=== PATIENT | male | born 1995 | race American Indian/Alaskan Native ===

== ENCOUNTER 2020-05-28 16:19 | Emergency (ER) | payer SELFPAY ==
[2020-05-28] MEDS ORDERED: HYDROcodone/ACETAMINOPHEN 5-325 MG TAB PO STA (17:13)
[2020-05-28 17:26] VITALS: BP 146/94
--- NOTE | 2020-05-28 17:30 | Emergency Department Report ---
ED ENT HPI - General Chief complaint: Dental/Oral Stated complaint: TOOTH PAIN Time Seen by Provider: 05/28/20 17:07 Source: patient Mode of arrival: Ambulatory Limitations: No Limitations - History of Present Illness Initial comments: 24-year-old -Citizen Of [place] male presents to the emergency department complaining of a week or more history of severe dental pain which is worse with chewing eating and palpation. Reports swelling to his his his gingival region region causing headaches need to follow-up with the dentist in 5 days but having a lot of issues managing the pain with [id number] medications who presents emerge department for further treatment options to hold him over. Reports no fever, chills, sweats MD complaint: tooth pain -: Gradual Severity: mild, moderate Quality: aching, dull Consistency: constant Improves with: none Worsens with: none Context- Dental: history of dental caries, poor dental care Associated Symptoms: gum swelling, toothache. denies: sore throat - Related Data Previous Rx's Medication Instructions Recorded Last Taken Type Acetaminophen/Codeine [Tylenol #3] 1 tab PO Q6H PRN #7 tab 05/28/20 Unknown Rx Amoxicillin [Amoxicillin TAB] 875 mg PO BID #20 tablet 05/28/20 Unknown Rx Chlorhexidine Mouthwash [Peridex] 10 ml MM BID #1 bottle 05/28/20 Unknown Rx Ketorolac [Toradol] 10 mg PO Q6H PRN #15 tablet 05/28/20 Unknown Rx Lidocaine Viscous 2% 5 ml MM Q3H PRN #120 udc 05/28/20 Unknown Rx Allergies Allergy/AdvReac Type Severity Reaction Status Date / Time No Known Allergies Allergy Unverified 05/28/20 17:24 ED Dental HPI - General Chief complaint: Dental/Oral Stated complaint: TOOTH PAIN Time Seen by Provider: 05/28/20 17:07 Source: patient Mode of arrival: Ambulatory Limitations: No Limitations - Related Data Previous Rx's Medication Instructions Recorded Last Taken Type Acetaminophen/Codeine [Tylenol #3] 1 tab PO Q6H PRN #7 tab 05/28/20 Unknown Rx Amoxicillin [Amoxicillin TAB] 875 mg PO BID #20 tablet 05/28/20 Unknown Rx Chlorhexidine Mouthwash [Peridex] 10 ml MM BID #1 bottle 05/28/20 Unknown Rx Ketorolac [Toradol] 10 mg PO Q6H PRN #15 tablet 05/28/20 Unknown Rx Lidocaine Viscous 2% 5 ml MM Q3H PRN #120 udc 05/28/20 Unknown Rx Allergies Allergy/AdvReac Type Severity Reaction Status Date / Time No Known Allergies Allergy Unverified 05/28/20 17:24 ED Review of Systems ROS: Stated complaint: TOOTH PAIN Other details as noted in HPI Comment: All other systems reviewed and negative ED Past Medical Hx - Past Medical History Previous Medical History?: No - Surgical History Past Surgical History?: No - Social History Smoking Status: Current Every Day Smoker Substance Use Type: None - Medications Home Medications: Home Medications Medication Instructions Recorded Confirmed Last Taken Type Acetaminophen/Codeine [Tylenol #3] 1 tab PO Q6H PRN #7 tab 05/28/20 Unknown Rx Amoxicillin [Amoxicillin TAB] 875 mg PO BID #20 tablet 05/28/20 Unknown Rx Chlorhexidine Mouthwash [Peridex] 10 ml MM BID #1 bottle 05/28/20 Unknown Rx Ketorolac [Toradol] 10 mg PO Q6H PRN #15 tablet 05/28/20 Unknown Rx Lidocaine Viscous 2% 5 ml MM Q3H PRN #120 udc 05/28/20 Unknown Rx ED Physical Exam - General Limitations: No Limitations General appearance: alert, in no apparent distress - Head Head exam: Present: atraumatic, normocephalic - Eye Eye exam: Present: normal appearance - ENT ENT exam: Present: mucous membranes moist - Expanded ENT Exam Expanded Teeth exam: Present: dental caries, fractured tooth #, dental tenderness # 1 - Dental Tenderness (Severe dental erosion to the entire crown with adjacent gingival erythema and brownish discoloration centrally located. No active drainage) 2 - Fractured (Adjacent gingival erythema mild edema), Dental Tenderness 3 - Other (Airway patent tongue and uvula midline normal voice no drooling) - Neck Neck exam: Present: normal inspection - Respiratory Respiratory exam: Present: normal lung sounds bilaterally. Absent: respiratory distress - Cardiovascular Cardiovascular Exam: Present: regular rate, normal rhythm. Absent: systolic murmur, diastolic murmur, rubs, gallop - GI/Abdominal GI/Abdominal exam: Present: soft, normal bowel sounds - Rectal Rectal exam: Present: deferred - Extremities Exam Extremities exam: Present: normal inspection - Back Exam Back exam: Present: normal inspection - Neurological Exam Neurological exam: Present: alert, oriented X3 - Psychiatric Psychiatric exam: Present: normal affect, normal mood - Skin Skin exam: Present: warm, dry, intact, normal color. Absent: rash ED Course Vital Signs 05/28/20 17:23 Temperature 98.1 F Pulse Rate 69 Respiratory 18 Rate Blood Pressure 146/94 O2 Sat by Pulse 99 Oximetry Critical care attestation.: If time is entered above; I have spent that time in minutes in the direct care of this critically ill patient, excluding procedure time. ED Disposition Clinical Impression: Infected dental caries, Dentalgia Disposition: TO HOME OR SELFCARE Is pt being admited?: No Does the pt Need Aspirin: No Condition: Stable Instructions: Acute Pain, Adult, Trench Mouth, Diet and Dental Disease, Dental Abscess, Preventive Dental Care, 13-17 Years Old, Tooth Injuries Prescriptions: Amoxicillin [Amoxicillin TAB] 875 mg PO BID #20 tablet Referrals: [facility] [Outside] - 3-5 Days
== END 2020-05-28 19:01 | disposition home or self-care (01) ==
LOC: ED 16:19
DX: K02.9 Dental caries, unspecified (principal); K08.89 Other specified disorders of teeth and supporting structures; F17.200 Nicotine dependence, unspecified, uncomplicated; Z79.899 Other long term (current) drug therapy
CPT/HCPCS: 99282

== ENCOUNTER 2020-05-30 01:45 | Emergency (ER) | payer SELFPAY ==
[2020-05-30 01:56] VITALS: BP 142/91
--- NOTE | 2020-05-30 02:04 | Emergency Department Report ---
Chief Complaint: Dental/Oral Stated Complaint: TOOTHACHE Time Seen by Provider: 05/30/20 01:58 - HPI History of Present Illness: Patient is a 25-year-old -I[place] male with history of infected dental caries. Patient seen and treated on yesterday with prescriptions for same. Patient states he has been unable to see dentist. Requesting more pain medicine. Patient is currently prescribed Toradol, Tylenol 3, amoxicillin, Peridex mouth rinse. Patient has been advised that he must follow-up with dentist as he has no new complaint, there is no facial swelling, no gum swelling, no fever or chills. Patient is tolerating p.o. intake at this time without problems. - ROS Review of Systems: There is no fevers no chills no nausea no vomiting no abdominal pain no back pain no throat pain no ear pain. There is been no change in bowel or bladder patient is tolerating p.o. intake. Function. - Exam Vital Signs: Vital Signs 05/30/20 01:53 Temperature 97.8 F Pulse Rate 59 L Blood Pressure 142/91 O2 Sat by Pulse 100 Oximetry Physical Exam: Patient appears well-nourished well-hydrated patient is alert oriented x3 airway is patent no swelling no stridor no wheezing no exudate lungs are clear bilateral throughout. Heart sounds normal S1-S2 no rub gallop or murmur. Abdomen is soft nontender. There is no focal dental abscess. There is mild gum erythema at #17. There is no facial swelling. MSE screening note: Focused history and physical exam performed. Due to findings the following was ordered: ED Medical Decision Making - Medical Decision Making This is infected dental caries, patient instructed to take medications as prescribed. Follow-up with dentist tomorrow. Patient given referral to [facility] dental. Patient does not have an emergency medical condition at this time. Patient elects to follow-up with dentist as previously directed. ED Disposition for MSE Clinical Impression: Dental caries Disposition: MED SCREENING EXAM-LEFT Is pt being admited?: No Does the pt Need Aspirin: No Condition: Stable Referrals: [facility] [Provider Group] - 3-5 Days Forms: Work/School Release Form(ED) Time of Disposition: 02:04
== END 2020-05-30 02:25 | disposition left against medical advice (07) ==
LOC: ED 01:45
DX: K02.9 Dental caries, unspecified (principal); Z53.21 Procedure and treatment not carried out due to patient leaving prior to being seen by health care provider

== ENCOUNTER 2020-10-04 22:55 | Emergency (ER) | payer SELFPAY ==
[2020-10-05 00:32] VITALS: BP 128/73
--- NOTE | 2020-10-05 00:34 | Emergency Department Report ---
ED General Adult HPI - General Stated complaint: POSSIBLE SPIDER BITE - History of Present Illness Initial comments: Patient is a 24-year-old -[place] male with no past medical history presents to the ED with complaint of acute onset persistent painful itchy erythematous maculopapular rash on anterior left lower leg for the last 2 days suspecting that he may been bitten by unknown insect or spider. Patient states that the pain has worsened especially in the last 12 hours. Patient denies fever, chills, nausea, vomiting, dizziness, syncope, traumatic injury, numbness and tingling or weakness of left leg, change in vision, chest pain or shortness of breath. MD Complaint: Left lower leg painful erythematous rash -: Sudden, days(s) (2) Location: lower extremity (Anterior left lower leg painful erythematous rash) Radiation: extremity (Left lower leg) Severity scale (0 -10): 4 Quality: aching, sharp Consistency: constant Improves with: none Worsens with: none Associated Symptoms: denies other symptoms, rash (Anterior left lower leg pain due to erythematous maculopapular rash). denies: confusion, chest pain, cough, diaphoresis, fever/chills, headaches, loss of appetite, malaise, nausea/vomiting, seizure, shortness of breath, syncope, weakness Treatments Prior to Arrival: none - Related Data Previous Rx's Medication Instructions Recorded Last Taken Type Acetaminophen/Codeine [Tylenol #3] 1 tab PO Q6H PRN #7 tab 05/28/20 Unknown Rx Amoxicillin [Amoxicillin TAB] 875 mg PO BID #20 tablet 05/28/20 Unknown Rx Chlorhexidine Mouthwash [Peridex] 10 ml MM BID #1 bottle 05/28/20 Unknown Rx Ketorolac [Toradol] 10 mg PO Q6H PRN #15 tablet 05/28/20 Unknown Rx Lidocaine Viscous 2% 5 ml MM Q3H PRN #120 udc 05/28/20 Unknown Rx Ibuprofen [Motrin] 600 mg PO Q8H PRN #24 tablet 10/05/20 Unknown Rx Sulfamethoxazole/Trimethoprim 1 each PO Q12H #20 tablet 10/05/20 Unknown Rx [Bactrim DS TAB] Allergies Allergy/AdvReac Type Severity Reaction Status Date / Time No Known Allergies Allergy Unverified 05/28/20 17:24 ED Review of Systems ROS: Stated complaint: POSSIBLE SPIDER BITE Other details as noted in HPI Constitutional: denies: chills, fever Eyes: denies: eye pain, eye discharge, vision change ENT: denies: ear pain, throat pain, dental pain, hearing loss, congestion Respiratory: denies: cough, shortness of breath, wheezing Cardiovascular: denies: chest pain, palpitations Endocrine: no symptoms reported Gastrointestinal: denies: abdominal pain, nausea, vomiting, diarrhea Genitourinary: denies: urgency, dysuria Musculoskeletal: arthralgia (Anterior left lower leg pain due to erythematous maculopapular rash). denies: back pain, joint swelling, myalgia Skin: rash (Erythematous maculopapular painful rash on anterior left lower leg), change in color, pruritus. denies: lesions Neurological: denies: headache, weakness, paresthesias Psychiatric: denies: anxiety, depression Hematological/Lymphatic: denies: easy bleeding, easy bruising ED Past Medical Hx - Social History Smoking Status: Current Every Day Smoker Substance Use Type: Alcohol - Medications Home Medications: Home Medications Medication Instructions Recorded Confirmed Last Taken Type Acetaminophen/Codeine [Tylenol #3] 1 tab PO Q6H PRN #7 tab 05/28/20 Unknown Rx Amoxicillin [Amoxicillin TAB] 875 mg PO BID #20 tablet 05/28/20 Unknown Rx Chlorhexidine Mouthwash [Peridex] 10 ml MM BID #1 bottle 05/28/20 Unknown Rx Ketorolac [Toradol] 10 mg PO Q6H PRN #15 tablet 05/28/20 Unknown Rx Lidocaine Viscous 2% 5 ml MM Q3H PRN #120 udc 05/28/20 Unknown Rx Ibuprofen [Motrin] 600 mg PO Q8H PRN #24 tablet 10/05/20 Unknown Rx Sulfamethoxazole/Trimethoprim 1 each PO Q12H #20 tablet 10/05/20 Unknown Rx [Bactrim DS TAB] ED Physical Exam - General General appearance: alert, in no apparent distress - Head Head exam: Present: atraumatic, normocephalic, normal inspection - Eye Eye exam: Present: normal appearance, PERRL, EOMI Pupils: Present: normal accommodation - ENT ENT exam: Present: normal exam, normal orophraynx, mucous membranes moist, TM's normal bilaterally, normal external ear exam - Neck Neck exam: Present: normal inspection, full ROM - Respiratory Respiratory exam: Present: normal lung sounds bilaterally. Absent: respiratory distress, wheezes, rales, stridor, chest wall tenderness, accessory muscle use, decreased breath sounds - Cardiovascular Cardiovascular Exam: Present: regular rate, normal rhythm, normal heart sounds. Absent: systolic murmur, diastolic murmur, rubs, gallop - GI/Abdominal GI/Abdominal exam: Present: soft, normal bowel sounds. Absent: tenderness, guarding, rebound, hyperactive bowel sounds, hypoactive bowel sounds, organomegaly - Extremities Exam Extremities exam: Present: normal inspection, full ROM, tenderness (Palpable moderately tender anterior left lower leg due to erythematous maculopapular nonfluctuant rash), normal capillary refill. Absent: pedal edema, joint swelling, calf tenderness - Back Exam Back exam: Present: normal inspection, full ROM. Absent: tenderness, CVA tenderness (R), CVA tenderness (L), muscle spasm - Neurological Exam Neurological exam: Present: alert, oriented X3, CN II-XII intact, normal gait, reflexes normal - Psychiatric Psychiatric exam: Present: normal affect, normal mood - Skin Skin exam: Present: warm, dry, intact, rash (Erythematous maculopapular nonfluctuant rash on anterior left lower leg with localized tenderness) ED Medical Decision Making - Medical Decision Making This is a 24-year-old -[place] male with no past medical history presents to the ED with complaint of acute onset persistent painful itchy erythematous maculopapular rash on anterior left lower leg for the last 2 days suspecting that he may been bitten by unknown insect or spider. Patient states that the pain has worsened especially in the last 12 hours. In the ED, patient is alert and oriented x3 and is not in distress. Patient is hemodynamically stable. Based on the history and physical exam findings, the patient was discharged home on pain medication and antibiotics and advised to follow-up with his primary care physician in 5 to 7 days for reevaluation. Patient was advised return to the ED immediately if symptoms get worse. - Differential Diagnosis cellulitis; insect bite; folliculitis; abscess Critical care attestation.: If time is entered above; I have spent that time in minutes in the direct care of this critically ill patient, excluding procedure time. ED Disposition Clinical Impression: Cellulitis of left lower extremity, Acute folliculitis Insect bite of left lower leg with infection Qualifiers: Encounter type: initial encounter Qualified Code(s): S80.862A - Insect bite (nonvenomous), left lower leg, initial encounter; L08.9 - Local infection of the skin and subcutaneous tissue, unspecified; W57.XXXA - Bitten or stung by nonvenomous insect and other nonvenomous arthropods, initial encounter Disposition: TO HOME OR SELFCARE Is pt being admited?: No Does the pt Need Aspirin: No Condition: Stable Instructions: Cellulitis, Adult, [id number], Insect Bite, Adult, [id number] Additional Instructions: Take medication with food, drink plenty of fluids and follow-up with your primary care physician in 7 to 10 days for reevaluation. Return to the ED immediately if symptoms get worse. Prescriptions: Sulfamethoxazole/Trimethoprim [Bactrim DS TAB] 1 each PO Q12H #20 tablet Ibuprofen [Motrin] 600 mg PO Q8H PRN #24 tablet PRN Reason: Pain Referrals: [facility] [Provider Group] - 7-10 days Time of Disposition: 00:38 Print Language: MACEDONIAN
== END 2020-10-05 01:15 | disposition home or self-care (01) ==
LOC: ED 22:55
DX: S80.862A Insect bite (nonvenomous), left lower leg, initial encounter (principal); L03.116 Cellulitis of left lower limb; L08.9 Local infection of the skin and subcutaneous tissue, unspecified; F17.200 Nicotine dependence, unspecified, uncomplicated; Z72.89 Other problems related to lifestyle; W57.XXXA Bitten or stung by nonvenomous insect and other nonvenomous arthropods, initial encounter; Y93.89 Activity, other specified; Y92.488 Other paved roadways as the place of occurrence of the external cause; Y99.8 Other external cause status
CPT/HCPCS: 99282

== ENCOUNTER 2020-10-05 19:01 | Emergency (ER) | payer SELFPAY ==
[2020-10-05] MEDS ORDERED: diphenhydrAMINE 25 MG CAP PO ONE (19:28)
[2020-10-05] MEDS ORDERED: FAMOTIDINE 20 MG TAB PO ONE (19:28)
[2020-10-05] MEDS ORDERED: methylPREDNISolone Sod Succinate 125 MG/2 ML INJ IM ONE (19:28)
--- NOTE | 2020-10-05 19:28 | Emergency Department Report ---
ED Allergic Reaction HPI - General Chief complaint: Allergic Reaction Stated complaint: STUNG BY BEE @ 1600 TODAY Source: patient Mode of arrival: Ambulatory Limitations: No Limitations - History of Present Illness Initial Comments: Patient is a 24-year-old -[place]ish male with no past medical history presents to the ED with complaint of acute onset persistent right cheek and upper lip swelling after being bitten by a yellowjacket wasp about 8 hours ago. Patient states that the swelling has gotten worse in the last 4 hours. Patient denies dizziness, syncope, fever, chills, nausea, vomiting, diarrhea, chest pain, shortness of breath, wheezing, cough, swollen throat, swollen tongue, dysphagia or dysphonia, or itching and urticaria rashes. MD Complaint: allergic reaction, facial swelling (right facial swelling, s/p insect bite) -: Sudden, hour(s) (8) Exposure: insect bite Symptoms: rash, itching, facial swelling, lip swelling. denies: difficulty swallowing, difficulty breathing, orolingual swelling, hoarseness, syncopy, other, abdominal pain Severity: moderate Treatment Prior to Arrival: none Previous Allergy History: none - Related Data Previous Rx's Medication Instructions Recorded Last Taken Type Acetaminophen/Codeine [Tylenol #3] 1 tab PO Q6H PRN #7 tab 05/28/20 Unknown Rx Amoxicillin [Amoxicillin TAB] 875 mg PO BID #20 tablet 05/28/20 Unknown Rx Chlorhexidine Mouthwash [Peridex] 10 ml MM BID #1 bottle 05/28/20 Unknown Rx Ketorolac [Toradol] 10 mg PO Q6H PRN #15 tablet 05/28/20 Unknown Rx Lidocaine Viscous 2% 5 ml MM Q3H PRN #120 udc 05/28/20 Unknown Rx Famotidine [Pepcid] 20 mg PO BID #30 tablet 10/05/20 Unknown Rx Ibuprofen [Motrin] 600 mg PO Q8H PRN #24 tablet 10/05/20 Unknown Rx Sulfamethoxazole/Trimethoprim 1 each PO Q12H #20 tablet 10/05/20 Unknown Rx [Bactrim DS TAB] diphenhydrAMINE [Benadryl CAP] 25 mg PO Q6HR PRN #30 capsule 10/05/20 Unknown Rx predniSONE [Deltasone] 60 mg PO QDAY #15 tab 10/05/20 Unknown Rx Allergies Allergy/AdvReac Type Severity Reaction Status Date / Time No Known Allergies Allergy Unverified 05/28/20 17:24 ED Review of Systems ROS: Stated complaint: STUNG BY BEE @ 1600 TODAY Other details as noted in HPI Constitutional: denies: chills, fever Eyes: denies: eye pain, eye discharge, vision change ENT: other (right facial and upper lip swelling). denies: ear pain, throat pain Respiratory: denies: cough, shortness of breath, SOB with exertion, SOB at rest, wheezing Cardiovascular: denies: chest pain, palpitations Endocrine: no symptoms reported Gastrointestinal: denies: abdominal pain, nausea, vomiting, diarrhea, constipation, hematemesis, hematochezia Genitourinary: denies: urgency, dysuria Musculoskeletal: denies: back pain, joint swelling, arthralgia Skin: other (right facial and upper lip swelling). denies: rash, lesions Neurological: denies: headache, weakness, paresthesias Psychiatric: denies: anxiety, depression Hematological/Lymphatic: denies: easy bleeding, easy bruising ED Past Medical Hx - Past Medical History Previous Medical History?: No - Surgical History Past Surgical History?: No - Social History Smoking Status: Never Smoker Substance Use Type: None - Medications Home Medications: Home Medications Medication Instructions Recorded Confirmed Last Taken Type Acetaminophen/Codeine [Tylenol #3] 1 tab PO Q6H PRN #7 tab 05/28/20 Unknown Rx Amoxicillin [Amoxicillin TAB] 875 mg PO BID #20 tablet 05/28/20 Unknown Rx Chlorhexidine Mouthwash [Peridex] 10 ml MM BID #1 bottle 05/28/20 Unknown Rx Ketorolac [Toradol] 10 mg PO Q6H PRN #15 tablet 05/28/20 Unknown Rx Lidocaine Viscous 2% 5 ml MM Q3H PRN #120 udc 05/28/20 Unknown Rx Famotidine [Pepcid] 20 mg PO BID #30 tablet 10/05/20 Unknown Rx Ibuprofen [Motrin] 600 mg PO Q8H PRN #24 tablet 10/05/20 Unknown Rx Sulfamethoxazole/Trimethoprim 1 each PO Q12H #20 tablet 10/05/20 Unknown Rx [Bactrim DS TAB] diphenhydrAMINE [Benadryl CAP] 25 mg PO Q6HR PRN #30 capsule 06/27/21 Unknown Rx predniSONE [Deltasone] 60 mg PO QDAY #15 tab 10/05/20 Unknown Rx ED Physical Exam - General Limitations: No Limitations General appearance: alert, in no apparent distress - Head Head exam: Present: atraumatic, normocephalic, normal inspection - Eye Eye exam: Present: normal appearance, PERRL, EOMI Pupils: Present: normal accommodation - ENT ENT exam: Present: normal orophraynx, mucous membranes moist, TM's normal bilaterally, normal external ear exam, other (Swollen mildly tender upper lip and right cheek) - Neck Neck exam: Present: normal inspection, full ROM - Respiratory Respiratory exam: Present: normal lung sounds bilaterally. Absent: respiratory distress, wheezes, rales, chest wall tenderness, accessory muscle use, decreased breath sounds, prolonged expiratory - Cardiovascular Cardiovascular Exam: Present: regular rate, normal rhythm, normal heart sounds. Absent: systolic murmur, diastolic murmur, rubs, gallop - GI/Abdominal GI/Abdominal exam: Present: soft, normal bowel sounds. Absent: tenderness, guarding, rebound, hyperactive bowel sounds, hypoactive bowel sounds, organomegaly - Extremities Exam Extremities exam: Present: normal inspection, full ROM, normal capillary refill - Back Exam Back exam: Present: normal inspection, full ROM. Absent: tenderness, CVA tenderness (R), CVA tenderness (L), muscle spasm, paraspinal tenderness, vertebral tenderness - Neurological Exam Neurological exam: Present: alert, oriented X3, CN II-XII intact, normal gait, reflexes normal - Psychiatric Psychiatric exam: Present: normal affect, normal mood - Skin Skin exam: Present: warm, dry, intact, normal color, rash (Swollen mildly tender right cheek and upper lip), urticaria. Absent: cyanosis, diaphoretic, erythema, petechiae, pallor, abrasion, ecchymosis ED Course Vital Signs 10/05/20 19:27 Temperature 98.8 F Pulse Rate 83 Respiratory 18 Rate Blood Pressure 136/74 O2 Sat by Pulse 99 Oximetry ED Medical Decision Making - Medical Decision Making This is a 24-year-old -Swedish male with no past medical history presents to the ED with complaint of acute onset persistent right cheek and upper lip swelling after being bitten by a yellowjacket wasp about 8 hours ago. Patient states that the swelling has gotten worse in the last 4 hours. In the ED, patient is alert and oriented x3 and is not in any distress. Patient was treated in the ED for acute allergic reaction with steroid injection, Benadryl and Pepcid. Patient was observed in the ED momentarily for any improvement in the swelling of his upper lip. On reevaluation, patient is hemodynamically stable, patient's airways patent and patient is in no acute distress. Swelling on his right cheek and upper lip improved significantly. Patient was therefore discharged home on medications including steroids, Benadryl and Pepcid. Patient was advised to follow-up with his primary care physician in 3 to 5 days for reevaluation. Patient was advised return to the ED immediately if symptoms get worse. - Differential Diagnosis allergic reaction; anaphylaxis; urticaria; cellulitis Critical care attestation.: If time is entered above; I have spent that time in minutes in the direct care of this critically ill patient, excluding procedure time. ED Disposition Clinical Impression: Allergic reaction to insect bite, Acute urticaria, Swelling of right side of face Acute allergic reaction Qualifiers: Encounter type: initial encounter Qualified Code(s): T78.40XA - Allergy, unspecified, initial encounter Disposition: DC-01 TO HOME OR SELFCARE Is pt being admited?: No Does the pt Need Aspirin: No Condition: Stable Instructions: Allergies, Adult, [id number], Hives, [id number], Rash, Adult, [id number] Additional Instructions: Take medication with food, drink plenty of fluids and follow-up with your primary care physician in 5 to 7 days for reevaluation. Return to the ED immediately if symptoms get worse. Prescriptions: diphenhydrAMINE [Benadryl CAP] 25 mg PO Q6HR PRN #30 capsule PRN Reason: Itching and swelling predniSONE [Deltasone] 60 mg PO QDAY #15 tab Famotidine [Pepcid] 20 mg PO BID #30 tablet Referrals: [facility] [Provider Group] - 3-5 Days Time of Disposition: 19:34 Print Language: CITIZEN OF [place]
[2020-10-05 19:36] VITALS: BP 136/74
== END 2020-10-05 20:05 | disposition home or self-care (01) ==
LOC: ED 19:01
DX: T63.481A Toxic effect of venom of other arthropod, accidental (unintentional), initial encounter (principal); Y92.89 Other specified places as the place of occurrence of the external cause; L50.0 Allergic urticaria; Z79.899 Other long term (current) drug therapy
CPT/HCPCS: 96372; 99282; J2930

== ENCOUNTER 2020-11-04 17:39 | Emergency (ER) | payer SELFPAY ==
[2020-11-04] MEDS ORDERED: EPINEPHrine/PF 1 MG/1 ML INJ SUB-Q ONE (17:42)
[2020-11-04] MEDS ORDERED: FAMOTIDINE 20 MG/2 ML INJ IV ONE (17:42)
[2020-11-04] MEDS ORDERED: dexAMETHasone 4 MG/ML VIAL IV ONE (17:42)
[2020-11-04] MEDS ORDERED: diphenhydrAMINE 50 MG/ML VIAL IV ONE (17:42)
--- NOTE | 2020-11-04 17:44 | Event Note ---
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 Further treatment and workup at subsequent clinical providers discretion. Patient/guardian urged not to elope from the ED as their condition may be serious if not clinically assessed and managed. Initial orders include: Meds manager cardiac
[2020-11-04] MEDS ORDERED: SODIUM CHLORIDE 0.9% 1000 ML 1,000 ML IV ONE (18:08)
[2020-11-04] MEDS ORDERED: dexAMETHasone 4 MG/ML VIAL IM ONE (18:08)
--- NOTE | 2020-11-04 18:19 | Emergency Department Report ---
ED Allergic Reaction HPI - General Chief complaint: Allergic Reaction Stated complaint: INSECT BITE Time Seen by Provider: 11/04/20 17:41 Source: patient Mode of arrival: Ambulatory Limitations: No Limitations - History of Present Illness Initial Comments: 24-year-old -[place] male with no reported past medical history presents emerged department complaining of pain to his upper lip after being stung by bee with some swelling and pain. Ports no odynophagia or dysphagia, no wheezing, shortness of breath, no has also been stung to his right right bicep and has some pruritus to the sting area. He reports no chest pain or palpitations, no nausea, no vomiting, no fever, chills, sweats MD Complaint: facial swelling, other -: Sudden (About 20 minutes prior to arrival) Exposure: insect bite Symptoms: itching, lip swelling Severity: moderate Treatment Prior to Arrival: none Previous Allergy History: none - Related Data Previous Rx's Medication Instructions Recorded Last Taken Type Acetaminophen/Codeine [Tylenol #3] 1 tab PO Q6H PRN #7 tab 05/28/20 Unknown Rx Amoxicillin [Amoxicillin TAB] 875 mg PO BID #20 tablet 05/28/20 Unknown Rx Chlorhexidine Mouthwash [Peridex] 10 ml MM BID #1 bottle 05/28/20 Unknown Rx Ketorolac [Toradol] 10 mg PO Q6H PRN #15 tablet 05/28/20 Unknown Rx Lidocaine Viscous 2% 5 ml MM Q3H PRN #120 udc 05/28/20 Unknown Rx Famotidine [Pepcid] 20 mg PO BID #30 tablet 10/05/20 Unknown Rx Ibuprofen [Motrin] 600 mg PO Q8H PRN #24 tablet 10/05/20 Unknown Rx Sulfamethoxazole/Trimethoprim 1 each PO Q12H #20 tablet 10/05/20 Unknown Rx [Bactrim DS TAB] diphenhydrAMINE [Benadryl CAP] 25 mg PO Q6HR PRN #30 capsule 10/05/20 Unknown Rx predniSONE [Deltasone] 60 mg PO QDAY #15 tab 10/05/20 Unknown Rx Desloratadine [Clarinex] 5 mg PO DAILY #10 tablet 11/04/20 Unknown Rx hydrOXYzine HCL [Atarax] 25 mg PO Q6HR PRN #20 tablet 11/04/20 Unknown Rx predniSONE [Deltasone] 50 mg PO QDAY #5 tab 11/04/20 Unknown Rx Allergies Allergy/AdvReac Type Severity Reaction Status Date / Time No Known Allergies Allergy Unverified 05/28/20 17:24 ED Review of Systems ROS: Stated complaint: INSECT BITE Other details as noted in HPI Comment: All other systems reviewed and negative ED Past Medical Hx - Past Medical History Previous Medical History?: Yes Additional medical history: yellow jacket allergy - Surgical History Past Surgical History?: No - Social History Smoking Status: Never Smoker Substance Use Type: None - Medications Home Medications: Home Medications Medication Instructions Recorded Confirmed Last Taken Type Acetaminophen/Codeine [Tylenol #3] 1 tab PO Q6H PRN #7 tab 05/28/20 Unknown Rx Amoxicillin [Amoxicillin TAB] 875 mg PO BID #20 tablet 05/28/20 Unknown Rx Chlorhexidine Mouthwash [Peridex] 10 ml MM BID #1 bottle 05/28/20 Unknown Rx Ketorolac [Toradol] 10 mg PO Q6H PRN #15 tablet 05/28/20 Unknown Rx Lidocaine Viscous 2% 5 ml MM Q3H PRN #120 udc 05/28/20 Unknown Rx Famotidine [Pepcid] 20 mg PO BID #30 tablet 10/05/20 Unknown Rx Ibuprofen [Motrin] 600 mg PO Q8H PRN #24 tablet 10/05/20 Unknown Rx Sulfamethoxazole/Trimethoprim 1 each PO Q12H #20 tablet 10/05/20 Unknown Rx [Bactrim DS TAB] diphenhydrAMINE [Benadryl CAP] 25 mg PO Q6HR PRN #30 capsule 10/05/20 Unknown Rx predniSONE [Deltasone] 60 mg PO QDAY #15 tab 10/05/20 Unknown Rx Desloratadine [Clarinex] 5 mg PO DAILY #10 tablet 11/04/20 Unknown Rx hydrOXYzine HCL [Atarax] 25 mg PO Q6HR PRN #20 tablet 11/04/20 Unknown Rx predniSONE [Deltasone] 50 mg PO QDAY #5 tab 11/04/20 Unknown Rx ED Physical Exam - General Limitations: No Limitations General appearance: alert, in no apparent distress - Head Head exam: Present: atraumatic, normocephalic - Eye Eye exam: Present: normal appearance, PERRL Pupils: Present: normal accommodation - ENT ENT exam: Present: mucous membranes moist - Expanded ENT Exam Expanded Mouth exam: Present: tongue normal. Absent: trismus, muffled voice, tongue elevation, laceration Throat exam: Positive: normal inspection. Negative: tonsillar erythema, tonsill omegaly, tonsillar exudate, R peritonsillar mass, L peritonsillar mass - Neck Neck exam: Present: normal inspection, full ROM. Absent: tenderness, meningismus, lymphadenopathy, thyromegaly - Respiratory Respiratory exam: Present: normal lung sounds bilaterally. Absent: respiratory distress, wheezes, rales, rhonchi, stridor, chest wall tenderness, accessory muscle use - Cardiovascular Cardiovascular Exam: Present: regular rate, normal rhythm. Absent: systolic murmur, diastolic murmur, rubs, gallop - GI/Abdominal GI/Abdominal exam: Present: soft, normal bowel sounds - Rectal Rectal exam: Present: deferred - Extremities Exam Extremities exam: Present: normal inspection, normal capillary refill - Back Exam Back exam: Present: normal inspection. Absent: CVA tenderness (R), CVA tenderness (L) - Neurological Exam Neurological exam: Present: alert, oriented X3, CN II-XII intact, normal gait. Absent: abnormal gait, motor sensory deficit - Psychiatric Psychiatric exam: Present: normal affect, normal mood - Skin Skin exam: Present: warm, dry, intact, normal color. Absent: rash ED Course Vital Signs 11/04/20 11/04/20 17:44 19:03 Temperature 98.3 F 99 F Pulse Rate 83 83 Respiratory 18 16 Rate Blood Pressure 131/74 153/71 [Right] O2 Sat by Pulse 99 99 Oximetry ED Medical Decision Making - Medical Decision Making This patient presents with symptoms consistent with acute hypersensitivity reaction, possibly acute allergic reaction but most likely a local bee sting reaction. No hives, no wheezing, no posterior pharynx swelling, no dyspnea, no shortness of breath, no odynophagia or dysphagia. Presentation not consistent with acute anaphylaxis (lack of pulmonary, dermatologic, cardiovascular or GI symptoms, lack of hypotension or exposure to known allergen), angioedema, serum sickness(no recent drug exposure, lack of fevers, arthralgias), ingestion of preformed toxin. No evidence of airway compromise or shock at this time. Plan to treat for allergic reaction with H2/H1 blockers, steroids. No indication for epinephrine at this time. Patient symptoms improved significantly during this hospital stay tolerated of the medications he maintained male alert and oriented x3 with no respiratory distress and no progression of his process during his observation time in the emergency room Plan Critical care attestation.: If time is entered above; I have spent that time in minutes in the direct care of this critically ill patient, excluding procedure time. ED Disposition Clinical Impression: Bee sting reaction Disposition: DC-01 TO HOME OR SELFCARE Is pt being admited?: No Does the pt Need Aspirin: No Condition: Stable Instructions: Allergies, Adult, [id number], Bee, Wasp, or Hornet Sting, Adult Additional Instructions: You have been evaluated in the emergency department today for allergic reaction. Been given medication to control your symptoms. You have been observed for several hours emerge department and you are stable for discharge at this time. You can take Benadryl and Pepcid which are available [id number] to help control your symptoms at home. You have also been given a prescription for medications to help with your symptoms in the form of steroids and and 8/histamine blockers. Please schedule appointment with your primary care physician for follow-up. Return to emergency department if you experience rashes, difficulty breathing or swallowing, lip mouth or tongue swelling, vomiting or for any other concerning symptoms Prescriptions: hydrOXYzine HCL [Atarax] 25 mg PO Q6HR PRN #20 tablet PRN Reason: Itching Desloratadine [Clarinex] 5 mg PO DAILY #10 tablet predniSONE [Deltasone] 50 mg PO QDAY #5 tab Referrals: [facility] [Provider Group] - 3-5 Days PRIMARY [facility]ARE, [Primary Care Provider] - 3-5 Days
[2020-11-04 19:04] VITALS: BP 153/71
== END 2020-11-04 21:05 | disposition home or self-care (01) ==
LOC: ED 17:39
DX: T63.441A Toxic effect of venom of bees, accidental (unintentional), initial encounter (principal); Z79.899 Other long term (current) drug therapy; X58.XXXA Exposure to other specified factors, initial encounter
CPT/HCPCS: 96361; 96372; 96374; 96375; 99282; J1100; J1200; J7030

== ENCOUNTER 2021-02-11 21:45 | Emergency (ER) | payer SELFPAY ==
[2021-02-11 21:57] VITALS: BP 148/81
--- NOTE | 2021-02-11 22:16 | Emergency Department Report ---
ED ENT HPI - General Chief complaint: Dental/Oral Stated complaint: TOOTH PAIN Time Seen by Provider: 02/11/21 22:03 Source: patient Mode of arrival: Ambulatory Limitations: No Limitations - History of Present Illness MD complaint: tooth pain -: Gradual, days(s) (Acute on chronic dental pain) Severity: mild, moderate Quality: dull Consistency: constant Improves with: none Worsens with: none Context- Dental: history of dental caries, poor dental care Associated Symptoms: toothache - Related Data Previous Rx's Medication Instructions Recorded Last Taken Type Acetaminophen/Codeine [Tylenol #3] 1 tab PO Q6H PRN #7 tab 05/28/20 Unknown Rx Ketorolac [Toradol] 10 mg PO Q6H PRN #15 tablet 05/28/20 Unknown Rx Lidocaine Viscous 2% 5 ml MM Q3H PRN #120 udc 05/28/20 Unknown Rx Famotidine [Pepcid] 20 mg PO BID #30 tablet 10/05/20 Unknown Rx Ibuprofen [Motrin] 600 mg PO Q8H PRN #24 tablet 10/05/20 Unknown Rx Sulfamethoxazole/Trimethoprim 1 each PO Q12H #20 tablet 10/05/20 Unknown Rx [Bactrim DS TAB] diphenhydrAMINE [Benadryl CAP] 25 mg PO Q6HR PRN #30 capsule 10/05/20 Unknown Rx predniSONE [Deltasone] 60 mg PO QDAY #15 tab 10/05/20 Unknown Rx Desloratadine [Clarinex] 5 mg PO DAILY #10 tablet 11/04/20 Unknown Rx hydrOXYzine HCL [Atarax] 25 mg PO Q6HR PRN #20 tablet 11/04/20 Unknown Rx predniSONE [Deltasone] 50 mg PO QDAY #5 tab 11/04/20 Unknown Rx Amoxicillin [Amoxicillin TAB] 875 mg PO BID #20 tablet 02/11/21 Unknown Rx Chlorhexidine Mouthwash [Peridex] 10 ml MM BID #1 bottle 02/11/21 Unknown Rx Ketorolac [Toradol] 10 mg PO Q6H PRN #15 tablet 02/11/21 Unknown Rx Lidocaine Viscous 2% 5 ml MM Q3H PRN #120 udc 02/11/21 Unknown Rx Allergies Allergy/AdvReac Type Severity Reaction Status Date / Time No Known Allergies Allergy Unverified 05/28/20 17:24 ED Dental HPI - General Chief complaint: Dental/Oral Stated complaint: TOOTH PAIN Time Seen by Provider: 02/11/21 22:03 Source: patient Mode of arrival: Ambulatory Limitations: No Limitations - Related Data Previous Rx's Medication Instructions Recorded Last Taken Type Acetaminophen/Codeine [Tylenol #3] 1 tab PO Q6H PRN #7 tab 05/28/20 Unknown Rx Ketorolac [Toradol] 10 mg PO Q6H PRN #15 tablet 05/28/20 Unknown Rx Lidocaine Viscous 2% 5 ml MM Q3H PRN #120 udc 05/28/20 Unknown Rx Famotidine [Pepcid] 20 mg PO BID #30 tablet 10/05/20 Unknown Rx Ibuprofen [Motrin] 600 mg PO Q8H PRN #24 tablet 10/05/20 Unknown Rx Sulfamethoxazole/Trimethoprim 1 each PO Q12H #20 tablet 10/05/20 Unknown Rx [Bactrim DS TAB] diphenhydrAMINE [Benadryl CAP] 25 mg PO Q6HR PRN #30 capsule 10/05/20 Unknown Rx predniSONE [Deltasone] 60 mg PO QDAY #15 tab 10/05/20 Unknown Rx Desloratadine [Clarinex] 5 mg PO DAILY #10 tablet 11/04/20 Unknown Rx hydrOXYzine HCL [Atarax] 25 mg PO Q6HR PRN #20 tablet 11/04/20 Unknown Rx predniSONE [Deltasone] 50 mg PO QDAY #5 tab 11/04/20 Unknown Rx Amoxicillin [Amoxicillin TAB] 875 mg PO BID #20 tablet 02/11/21 Unknown Rx Chlorhexidine Mouthwash [Peridex] 10 ml MM BID #1 bottle 02/11/21 Unknown Rx Ketorolac [Toradol] 10 mg PO Q6H PRN #15 tablet 02/11/21 Unknown Rx Lidocaine Viscous 2% 5 ml MM Q3H PRN #120 udc 02/11/21 Unknown Rx Allergies Allergy/AdvReac Type Severity Reaction Status Date / Time No Known Allergies Allergy Unverified 05/28/20 17:24 ED Review of Systems ROS: Stated complaint: TOOTH PAIN Other details as noted in HPI Comment: All other systems reviewed and negative ED Past Medical Hx - Past Medical History Previous Medical History?: No Additional medical history: yellow jacket allergy - Surgical History Past Surgical History?: No - Social History Smoking Status: Never Smoker Substance Use Type: None - Medications Home Medications: Home Medications Medication Instructions Recorded Confirmed Last Taken Type Acetaminophen/Codeine [Tylenol #3] 1 tab PO Q6H PRN #7 tab 05/28/20 Unknown Rx Ketorolac [Toradol] 10 mg PO Q6H PRN #15 tablet 05/28/20 Unknown Rx Lidocaine Viscous 2% 5 ml MM Q3H PRN #120 udc 05/28/20 Unknown Rx Famotidine [Pepcid] 20 mg PO BID #30 tablet 10/05/20 Unknown Rx Ibuprofen [Motrin] 600 mg PO Q8H PRN #24 tablet 10/05/20 Unknown Rx Sulfamethoxazole/Trimethoprim 1 each PO Q12H #20 tablet 10/05/20 Unknown Rx [Bactrim DS TAB] diphenhydrAMINE [Benadryl CAP] 25 mg PO Q6HR PRN #30 capsule 10/05/20 Unknown Rx predniSONE [Deltasone] 60 mg PO QDAY #15 tab 10/05/20 Unknown Rx Desloratadine [Clarinex] 5 mg PO DAILY #10 tablet 11/04/20 Unknown Rx hydrOXYzine HCL [Atarax] 25 mg PO Q6HR PRN #20 tablet 11/04/20 Unknown Rx predniSONE [Deltasone] 50 mg PO QDAY #5 tab 11/04/20 Unknown Rx Amoxicillin [Amoxicillin TAB] 875 mg PO BID #20 tablet 02/11/21 Unknown Rx Chlorhexidine Mouthwash [Peridex] 10 ml MM BID #1 bottle 02/11/21 Unknown Rx Ketorolac [Toradol] 10 mg PO Q6H PRN #15 tablet 02/11/21 Unknown Rx Lidocaine Viscous 2% 5 ml MM Q3H PRN #120 udc 02/11/21 Unknown Rx ED Physical Exam - General Limitations: No Limitations General appearance: alert, in no apparent distress - Head Head exam: Present: atraumatic, normocephalic - Eye Eye exam: Present: normal appearance, PERRL, EOMI Pupils: Present: normal accommodation - ENT ENT exam: Present: mucous membranes moist, other (Diffuse dental caries for s ignificant erosion to left lower molar region. Airway patent. Tongue and uvula midline. Airway is patent. Normal voice no drooling.) - Neck Neck exam: Present: normal inspection - Respiratory Respiratory exam: Present: normal lung sounds bilaterally. Absent: respiratory distress - Cardiovascular Cardiovascular Exam: Present: regular rate, normal rhythm. Absent: systolic murmur, diastolic murmur, rubs, gallop - GI/Abdominal GI/Abdominal exam: Present: soft, normal bowel sounds - Rectal Rectal exam: Present: deferred - Extremities Exam Extremities exam: Present: normal inspection - Back Exam Back exam: Present: normal inspection - Neurological Exam Neurological exam: Present: alert, oriented X3 - Psychiatric Psychiatric exam: Present: normal affect, normal mood - Skin Skin exam: Present: warm, dry, intact, normal color. Absent: rash ED Course Vital Signs 02/11/21 21:56 Temperature 98.2 F Pulse Rate 64 Respiratory 18 Rate Blood Pressure 148/81 O2 Sat by Pulse 98 Oximetry Critical care attestation.: If time is entered above; I have spent that time in minutes in the direct care of this critically ill patient, excluding procedure time. ED Disposition Clinical Impression: Infected dental caries Disposition: HOME / SELF CARE / HOMELESS Is pt being admited?: No Does the pt Need Aspirin: No Condition: Stable Instructions: Dental Abscess, [id number], Dental Abscess Prescriptions: Amoxicillin [Amoxicillin TAB] 875 mg PO BID #20 tablet Lidocaine Viscous 2% 5 ml MM Q3H PRN #120 udc PRN Reason: Pain, Moderate (4-6) Chlorhexidine Mouthwash [Peridex] 10 ml MM BID #1 bottle Ketorolac [Toradol] 10 mg PO Q6H PRN #15 tablet PRN Reason: Pain Referrals: [facility] [Outside] - 3-5 Days
== END 2021-02-11 23:04 | disposition home or self-care (01) ==
LOC: ED 21:45
DX: K02.9 Dental caries, unspecified (principal)
CPT/HCPCS: 99281

== ENCOUNTER 2021-02-12 14:42 | Emergency (ER) | payer SELFPAY ==
--- NOTE | 2021-02-12 15:26 | Emergency Department Report ---
ED ENT HPI - General Chief complaint: Dental/Oral Stated complaint: TEETH PAIN Time Seen by Provider: 02/12/21 14:52 Source: patient Mode of arrival: Ambulatory Limitations: No Limitations - History of Present Illness Initial comments: 25-year-old male presents to the ER today with complaints of dental pain to his right lower jaw. Patient states that pain started about 1 week ago but over the past 2 days been significantly worse to the point where he is having difficulty sleeping and unable to eat. Girlfriend states that she had similar issues with her teeth a few weeks back and given prescription for Augmentin, Ultram and 800 mg ibuprofen as well as viscous lidocaine. She states that she has been given her boyfriend those medications over the past 2 days but has not been helping them. She states that they were able to make an appointment with a dentist but is not until March. Other than the pain patient reports no swelling, trismus, drooling, facial redness, or difficulty breathing or any additional symptoms at this time. MD complaint: tooth pain -: week(s) (1) - Related Data Previous Rx's Medication Instructions Recorded Last Taken Type Lidocaine Viscous 2% 5 ml MM Q3H PRN #120 udc 05/28/20 Unknown Rx Famotidine [Pepcid] 20 mg PO BID #30 tablet 10/05/20 Unknown Rx Ibuprofen [Motrin] 600 mg PO Q8H PRN #24 tablet 10/05/20 Unknown Rx Desloratadine [Clarinex] 5 mg PO DAILY #10 tablet 11/04/20 Unknown Rx Acetaminophen/Codeine [Tylenol 1 tab PO Q6H PRN #10 tab 02/12/21 Unknown Rx /Codeine # 3 tab] Penicillin V Potassium 500 mg PO QID #40 tablet 02/12/21 Unknown Rx Allergies Allergy/AdvReac Type Severity Reaction Status Date / Time No Known Allergies Allergy Unverified 05/28/20 17:24 ED Dental HPI - General Chief complaint: Dental/Oral Stated complaint: TEETH PAIN Time Seen by Provider: 02/12/21 14:52 Source: patient Mode of arrival: Ambulatory Limitations: No Limitations - Related Data Previous Rx's Medication Instructions Recorded Last Taken Type Lidocaine Viscous 2% 5 ml MM Q3H PRN #120 udc 05/28/20 Unknown Rx Famotidine [Pepcid] 20 mg PO BID #30 tablet 10/05/20 Unknown Rx Ibuprofen [Motrin] 600 mg PO Q8H PRN #24 tablet 10/05/20 Unknown Rx Desloratadine [Clarinex] 5 mg PO DAILY #10 tablet 11/04/20 Unknown Rx Acetaminophen/Codeine [Tylenol 1 tab PO Q6H PRN #10 tab 02/12/21 Unknown Rx /Codeine # 3 tab] Penicillin V Potassium 500 mg PO QID #40 tablet 02/12/21 Unknown Rx Allergies Allergy/AdvReac Type Severity Reaction Status Date / Time No Known Allergies Allergy Unverified 05/28/20 17:24 ED Review of Systems ROS: Stated complaint: TEETH PAIN Other details as noted in HPI Comment: All other systems reviewed and negative Constitutional: denies: chills, fever Eyes: denies: eye pain, eye discharge, vision change ENT: dental pain. denies: ear pain, throat pain, hearing loss, epistaxis, congestion Respiratory: denies: cough, orthopnea, shortness of breath, SOB with exertion, SOB at rest, stridor, wheezing Cardiovascular: denies: chest pain, palpitations, dyspnea on exertion, orthopnea, edema Gastrointestinal: denies: abdominal pain, nausea, diarrhea, constipation, hematemesis, melena, hematochezia Genitourinary: denies: urgency, dysuria, frequency, hematuria, discharge, testicular pain, testicular mass Musculoskeletal: denies: back pain, joint swelling, arthralgia Skin: denies: rash, lesions, change in color, change in hair/nails, pruritus Neurological: denies: headache, weakness, numbness, paresthesias, confusion, abnormal gait, vertigo Psychiatric: denies: anxiety, depression, auditory hallucinations, visual hallucinations, homicidal thoughts, suicidal thoughts Hematological/Lymphatic: denies: easy bleeding, easy bruising, swollen glands ED Past Medical Hx - Past Medical History Additional medical history: yellow jacket allergy - Social History Smoking Status: Never Smoker Substance Use Type: None - Medications Home Medications: Home Medications Medication Instructions Recorded Confirmed Last Taken Type Lidocaine Viscous 2% 5 ml MM Q3H PRN #120 udc 05/28/20 Unknown Rx Famotidine [Pepcid] 20 mg PO BID #30 tablet 10/05/20 Unknown Rx Ibuprofen [Motrin] 600 mg PO Q8H PRN #24 tablet 10/05/20 Unknown Rx Desloratadine [Clarinex] 5 mg PO DAILY #10 tablet 11/04/20 Unknown Rx Acetaminophen/Codeine [Tylenol 1 tab PO Q6H PRN #10 tab 02/12/21 Unknown Rx /Codeine # 3 tab] Penicillin V Potassium 500 mg PO QID #40 tablet 02/12/21 Unknown Rx ED Physical Exam - General Limitations: No Limitations General appearance: alert, in no apparent distress - Head Head exam: Present: atraumatic, normocephalic, normal inspection - Eye Eye exam: Present: normal appearance, PERRL, EOMI Pupils: Present: normal accommodation - ENT ENT exam: Present: normal exam, mucous membranes dry, mucous membranes moist - Expanded ENT Exam Expanded Mouth exam: Present: normal external inspection 1 - Dental Tenderness, Other (mod amt of decay; mild gingival swelling; no apparent abscess) 2 - Dental Tenderness, Other (severe dental decay with severe ttp; mild gum swelling. no apparent abscess.) - Neck Neck exam: Present: normal inspection, full ROM. Absent: tenderness, meningismus, lymphadenopathy - Respiratory Respiratory exam: Absent: respiratory distress - Cardiovascular Cardiovascular Exam: Present: regular rate, normal rhythm, normal heart sounds - Neurological Exam Neurological exam: Present: alert, oriented X3, CN II-XII intact, normal gait - Psychiatric Psychiatric exam: Present: normal affect, normal mood - Skin Skin exam: Present: intact ED Course Vital Signs 02/12/21 14:43 Temperature 98.2 F Pulse Rate 61 Respiratory 18 Rate Blood Pressure 156/93 [Right] O2 Sat by Pulse 100 Oximetry Critical care attestation.: If time is entered above; I have spent that time in minutes in the direct care of this critically ill patient, excluding procedure time. ED Disposition Clinical Impression: Infected dental caries Disposition: 01 HOME / SELF CARE / HOMELESS Is pt being admited?: No Does the pt Need Aspirin: No Condition: Stable Instructions: Dental Caries, Pediatric, Diet and Dental Disease, Preventive Dental Care, Adult Additional Instructions: I recommend that you continue taking that and 800mg ibuprofen as well as the viscous lidocaine. Take the Tylenol threes and the penicillin as prescribed. You can try calling to some of the dental clinics listed on the list given to you at discharge to see if he can get a sooner appointment. Return to the ER if your symptoms changes or worsens in any way. Prescriptions: Penicillin V Potassium 500 mg PO QID #40 tablet Acetaminophen/Codeine [Tylenol /Codeine # 3 tab] 1 tab PO Q6H PRN #10 tab PRN Reason: Pain , Severe (7-10) Referrals: PRIMARY CARE, [Referring] - 3-5 Days Time of Disposition: 15:29
[2021-02-12] MEDS ORDERED: ACETAMINOPHEN W/CODEINE 300-30 MG TAB PO ONE (15:47)
[2021-02-12 15:57] VITALS: BP 132/76
== END 2021-02-12 15:56 | disposition home or self-care (01) ==
LOC: ED 14:42
DX: K02.9 Dental caries, unspecified (principal); Z79.899 Other long term (current) drug therapy
CPT/HCPCS: 99282